=== PATIENT | female | born 1975 | race American Indian/Alaskan Native ===

== ENCOUNTER 2017-05-16 04:04 | Emergency (ER) | payer OTHER ==
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
[2017-05-16 04:24] VITALS: TEMP 98; O2SAT 100
[2017-05-16 06:38] VITALS: BP 140/82; PULSE 89; RESP 20
== END 2017-05-16 06:15 | disposition home or self-care (01) ==
LOC: ED 04:04
DX: J45.901 Unspecified asthma with (acute) exacerbation (principal)